=== PATIENT | female | born 1955 | race Caucasian/White ===

== ENCOUNTER → 2017-08-17 | Outpatient (CLI) | payer MEDICARE ==
[~2017-08-17] MED LIST: ADV250/50 INH; ALE70 PO; BUPR300T55 PO; ESOM40CA42 PO; FEXO180T74 PO; FLUT1DIS28 IH; LEVA15HF IH; MON10 PO; ONDA4TAB PO; PIRB14AE3 IH; PROM25S PR; [UNRECOGNIZED DRUG - CODE] MC
[2017-08-17 11:52] LABS: PLATELET COUNT, AUTOMATED 192 K/uL (150-450)
== END ==
LOC: LAB 11:36
PROVIDERS: ATTEND Nurse Practitioner Family
DX: R63.4 Abnormal weight loss (principal)
CPT/HCPCS: 36415; 82040; 82247; 82310; 82374; 82435; 82565; 82947; 83735; 84075; 84132; 84155; 84295; 84443; 84450; 84460; 84520; 85025; 85651; 86140

== ENCOUNTER 2018-01-25 20:46 | Emergency (ER) | payer MEDICARE ==
[~2018-01-25 20:46] MED LIST changes: +ALBU8.5H IH; +BUPR300T56 PO; +DULO30CA6 PO; +DULO60CA7 PO; +MUPI22OI28 TP
[2018-01-25] MEDS ORDERED: PSEU120T69 PO (20:57)
[2018-01-25] MEDS ORDERED: NS(*) 0.9% 1000 ML BAG 1,000 ML IV ONE ×2 (21:03→22:05)
[2018-01-25] MEDS ORDERED: ONDANSETRON 4 MG/2 ML VIAL IVP ONE (21:05)
[2018-01-25] MEDS ORDERED: KETOROLAC 30 MG/ML VIAL IVP ONE (21:05)
[2018-01-25] MEDS ORDERED: ASPIRIN 81 MG CHEW PO ONE (21:05)
--- NOTE | 2018-01-25 21:11 | ER Report ---
History and Physical Time Seen By MD: 21:06 Hx. of Stated Complaint: PATIENT STATES SHE STARTED FEELING LIGHT HEADED, SHAKY AND TINGLING IN HANDS FOR OVER THE LAST HOUR. PATIENT STATES SHE HAS BEEN HAVING PAIN IN CHEST AND SOB THAT HAS BEEN HAPPENING EVERY NIGHT FOR THE LAST FOUR NIGHTS. HPI/ROS CHIEF COMPLAINT: Dizziness, lightheadedness, upper extremity shaking and tingling sensation, chest discomfort, shortness of breath HISTORY OF PRESENT ILLNESS: Patient is a 62-year-old female here with complaints of lightheadedness, weakness, malaise, shakiness and tingling in the upper extremities which started shortly prior to arrival. Patient also reports coinciding chest discomfort which is the mid sternal distribution without radiation and with shortness breath which has been present for the past several evenings. Patient reports similar episodes in the past which were not as bad. She does admit to strenuous exercise this afternoon. Patient's family member noted that she had some gait instability which was transient. Patient denies current headache, blurry vision, fevers, chills, nausea, vomiting, hematuria, dysuria. REVIEW OF SYSTEMS: Constitutional: No fever, no chills. Eyes: No discharge. ENT: No sore throat. Cardiovascular: No chest pain, no palpitations, + mid sternal chest discomfort Respiratory: No cough, + shortness of breath. Gastrointestinal: No abdominal pain, no vomiting. Genitourinary: No hematuria. Musculoskeletal: No back pain. Skin: No rashes. Neurological: No headache, + lightheadedness and tingling sensation of b/l UE Allergies: Coded Allergies: cephalexin (Verified Allergy, Intermediate, RED IN FACE/RASH, 01/25/18) Sulfa (Sulfonamide Antibiotics) (Verified Allergy, Mild, 01/25/18) azelastine (Verified Allergy, Mild, 01/25/18) morphine (Verified Allergy, Mild, 01/25/18) Home Meds Active Scripts Montelukast Sodium (SINGULAIR) 10 Mg Tablet, 1 TAB PO QDAY for 30 Days, #30 TAB Prov:BESS PEDERSON DO 01/25/18 Bupropion Hcl (BUPROPION XL) 300 Mg Tab.er.24h, 300 MG PO QAM for 90 Days, #90 TAB 3 Refills Prov:WELLINGTON,REFUGIO TEJADA 12/15/17 Fluticasone/Salmeterol (ADVAIR 250-50 DISKUS) 1 Each Disk.w.dev, 1 PUFF IH BID, #3 DISK 4 Refills Prov:DEANN MCGHEE APRN 08/17/17 Reported Medications Pseudoephedrine Hcl (SUDAFED 12 HOUR) 120 Mg Tablet.er, 120 MG PO QDAY 01/25/18 Montelukast Sodium (Singulair) 10 Mg Tab, 10 MG PO QDAY, 0 Refills 04/16/11 Pancreatin (Pancreatin) 500 Gm Powder, 500 GM MC, 0 Refills 04/16/11 Esomeprazole Mag Trihydrate (Nexium) 40 Mg Capsule.dr, 40 MG PO QDAY, 0 Refills 04/16/11 Pirbuterol (Maxair Autohaler) 14 Gm Aer.br.act, 14 GM IH, 0 Refills 04/16/11 Fexofenadine Hcl (Yolanda) 180 Mg Tablet, 180 MG PO QDAY, 0 Refills 04/16/11 Discontinued Scripts Mupirocin (MUPIROCIN) 22 Gm Oint...g., 22 GM TP BID, #1 TUBE 0 Refills Apply to wound on ear twice daily as instructed. apply sparingly. Prov:REFUGIO WELLINGTON PHARMD 12/15/17 Duloxetine HCl (Duloxetine HCl) 30 Mg Capsule.dr, 1 CAP PO QDAY for 30 Days, # 30 CAP 2 Refills Prov:REFUGIO WELLINGTON PHARMD 11/03/17 Duloxetine HCl (Duloxetine HCl) 60 Mg Capsule., 1 CAP PO QDAY for 30 Days, # 30 CAP 5 Refills taper off of bupropion as instructed. Prov:REFUGIO WELLINGTON PHARMD 09/26/17 Albuterol Sulfate 90 Mcg/Act (PROAIR HFA 90 MCG/ACT) 8.5 Gm Hfa.aer.ad, 2 PUFF IH QID, #1 INHALER 1 Refill Prov:DEANN MCGHEE APRN 08/31/17 Hx Smoking: No Smoking Status: Never Smoker Hx Substance Use Disorder: No Hx Alcohol Use: No Constitutional Vital Sign - Last 24 Hours 01/25/18 01/25/18 01/25/18 01/25/18 20:49 21:00 21:01 21:16 Temp 97.8 Pulse 121 94 ??? Resp 16 9 13 B/P (MAP) 131/84 110/69 (83) Pulse Ox 93 95 93 O2 Delivery Room Air 01/25/18 01/25/18 22:00 22:01 Pulse 81 Resp 9 B/P (MAP) 110/62 (78) Pulse Ox 97 Intake and Output 01/25/18 01/25/18 01/26/18 14:59 22:59 06:59 Intake Total 1000 ml Balance 1000 ml Physical Exam General Appearance: The patient is alert, has no immediate need for airway protection and no signs of toxicity. No acute distress Eyes: Pupils equal and round no pallor or injection. ENT, Mouth: Mucous membranes are moist. Respiratory: There are no retractions, lungs are clear to auscultation. Cardiovascular: Regular rate and rhythm. Gastrointestinal: Abdomen is soft and non tender, no masses, bowel sounds normal. Neurological: No focal neurological deficits, + subtle horizontal nystagmus which is fatigable Skin: Warm and dry, no rashes. Musculoskeletal: Neck is supple non tender. Extremities are nontender, nonswollen and have full range of motion. DIFFERENTIAL DIAGNOSIS: After history and physical exam differential diagnosis was considered for dizziness including but not limited to peripheral and central causes of vertigo, orthostatic causes including dehydration, and blood loss. Medical Decision Making Data Points Result Diagram: 01/25/18211901/25/182119 Laboratory Hematology Test 01/25/18 21:20 Red Blood Count 4.57 M/uL (4.17-5.56) Mean Corpuscular Volume 90.8 fL (80.0-96.0) Mean Corpuscular Hemoglobin 31.4 pg (26.0-33.0) Mean Corpuscular Hemoglobin Concent 34.6 g/dL (32.0-36.0) Red Cell Distribution Width 13.0 % (11.5-14.5) Mean Platelet Volume 9.5 fL (7.2-11.1) Neutrophils (%) (Auto) 64.5 % (39.4-72.5) Lymphocytes (%) (Auto) 20.0 % (17.6-49.6) Monocytes (%) (Auto) 11.8 % (4.1-12.4) Eosinophils (%) (Auto) 2.9 % (0.4-6.7) Basophils (%) (Auto) 0.8 % (0.3-1.4) Nucleated RBC Relative Count (auto) 0.1 /100WBC Neutrophils # (Auto) 3.9 K/uL (2.0-7.4) Lymphocytes # (Auto) 1.2 K/uL (1.3-3.6) Monocytes # (Auto) 0.7 K/uL (0.3-1.0) Eosinophils # (Auto) 0.2 K/uL (0.0-0.5) Basophils # (Auto) 0.0 K/uL (0.0-0.1) Nucleated RBC Absolute Count (auto) 0.00 K/uL D-Dimer Quantitative (PE/DVT) 0.33 ug/ml (0-0.50) Sodium Level 138 mmol/L (137-145) Potassium Level 3.2 mmol/L (3.5-5.0) Chloride Level 100 mmol/L (98-107) Carbon Dioxide Level 25 mmol/L (22-31) Blood Urea Nitrogen 30 mg/dl (7-18) Creatinine 1.00 mg/dl (0.52-1.04) Glomerular Filtration Rate Calc 55.8 Random Glucose 154 mg/dl (75-110) Calcium Level 9.5 mg/dl (8.4-10.2) Total Bilirubin 0.4 mg/dl (0.2-1.3) Aspartate Amino Transf (AST/SGOT) 38 U/L (0-35) Alanine Aminotransferase (ALT/SGPT) 39 U/L (0-56) Alkaline Phosphatase 82 U/L (0-126) Troponin I < 0.012 ng/ml B-Type Natriuretic Peptide 26 pg/ml (0-100) Total Protein 7.4 g/dl (6.3-8.2) Albumin 4.3 g/dl (3.5-5.0) Chemistry Test 01/25/18 21:20 White Blood Count 6.1 k/uL (4.5-11.0) Red Blood Count 4.57 M/uL (4.17-5.56) Hemoglobin 14.4 g/dL (12.0-16.0) Hematocrit 41.5 % (34.0-47.0) Mean Corpuscular Volume 90.8 fL (80.0-96.0) Mean Corpuscular Hemoglobin 31.4 pg (26.0-33.0) Mean Corpuscular Hemoglobin Concent 34.6 g/dL (32.0-36.0) Red Cell Distribution Width 13.0 % (11.5-14.5) Platelet Count 182 K/uL (150-450) Mean Platelet Volume 9.5 fL (7.2-11.1) Neutrophils (%) (Auto) 64.5 % (39.4-72.5) Lymphocytes (%) (Auto) 20.0 % (17.6-49.6) Monocytes (%) (Auto) 11.8 % (4.1-12.4) Eosinophils (%) (Auto) 2.9 % (0.4-6.7) Basophils (%) (Auto) 0.8 % (0.3-1.4) Nucleated RBC Relative Count (auto) 0.1 /100WBC Neutrophils # (Auto) 3.9 K/uL (2.0-7.4) Lymphocytes # (Auto) 1.2 K/uL (1.3-3.6) Monocytes # (Auto) 0.7 K/uL (0.3-1.0) Eosinophils # (Auto) 0.2 K/uL (0.0-0.5) Basophils # (Auto) 0.0 K/uL (0.0-0.1) Nucleated RBC Absolute Count (auto) 0.00 K/uL D-Dimer Quantitative (PE/DVT) 0.33 ug/ml (0-0.50) Glomerular Filtration Rate Calc 55.8 Calcium Level 9.5 mg/dl (8.4-10.2) Total Bilirubin 0.4 mg/dl (0.2-1.3) Aspartate Amino Transf (AST/SGOT) 38 U/L (0-35) Alanine Aminotransferase (ALT/SGPT) 39 U/L (0-56) Alkaline Phosphatase 82 U/L (0-126) Troponin I < 0.012 ng/ml B-Type Natriuretic Peptide 26 pg/ml (0-100) Total Protein 7.4 g/dl (6.3-8.2) Albumin 4.3 g/dl (3.5-5.0) Coagulation Test 01/25/18 21:20 D-Dimer Quantitative (PE/DVT) 0.33 ug/ml EKG/Imaging EKG Interpretation 12 lead EKG: Normal sinus rhythm with sinus arrhythmia, rate 92, QTc 457, no ischemic changes Rhythm: normal sinus rhythm with sinus arrhythmia Gratz: normal QRS: normal ST segments: normal Imaging CHEST PA AND LAT HISTORY: Chest Pain COMPARISON: Dizziness. Gait instability. FINDINGS: Cardiomediastinal contours: Normal Lungs and pleura: Symmetric streaky opacities within the lung apices. No edema or consolidation. No pneumothorax or pleural effusion. Bones/soft tissues: Normal Other findings: None significant IMPRESSION: 1. Probable biapical pleural-parenchymal scarring. Otherwise no acute consolidation or edema. HEAD W/O CONTRAST HISTORY: dizziness, gait instability COMPARISON STUDIES: None TECHNIQUE: Contiguous axial images were obtained from the skull base to the vertex. One of the following dose optimization techniques was utilized in the performance of this exam: automated exposure control; adjustment of the mA and/ or kv according to patient size; or use of iterative reconstruction technique. Specific details can be referenced in the facility's radiology CT exam operational policy. FINDINGS: Hemorrhage: Negative Ventricles / sulci / fissures: Negative Masses / midline shift: Negative White matter: Negative Modi-white differentiation: Negative Vessels: Negative Extra-axial spaces: Negative Bones/skull base: Negative Visualized mastoid air cells / paranasal sinuses: Negative Scalp and soft tissues: Negative. Other findings: None significant IMPRESSION: 1. No acute intracranial abnormality. ED Course/Re-evaluation ED Course Patient is a 62-year-old female here with complaints of lightheadedness, weakness, tingling sensation in the upper extremities, chest discomfort. Discomfort had been going on for the last [address] imaging of the head showed no acute intracranial pathology. Chest x-ray showed no acute findings. EKG showed no ischemic changes. Patient was given 2 L of fluid with significant improvement of symptoms. Labs are unremarkable. Troponin and d-dimer were negative making myocardial infarction pulmonary embolism less likely. Discussed the findings with the patient she voiced understanding. She was concerned that she may be having a malabsorption issue for which I recommended following up with gastroenterology. I also recommended the patient follows up with cardiology to evaluate for inducible angina or exertional chest pain. I gave the patient a prescription for Singulair until she is able follow up with her PCP. Patient was well-appearing at time of discharge and in no acute distress. Decision to Disposition Date: Jan 25, 2018 Decision to Disposition Time: 22:40 Depart Departure Latest Vital Signs Vital Signs Date Time Temp Pulse Resp B/P (MAP) Pulse Ox O2 Delivery O2 Flow Rate FiO2 01/25/18 22:01 81 9 97 01/25/18 22:00 110/62 (78) 01/25/18 20:49 97.8 Room Air Impression: Primary Impression: Weakness Additional Impressions: Dehydration Lightheadedness Condition: Improved Disposition: HOME OR SELF-CARE New Scripts Montelukast Sodium (SINGULAIR) 10 Mg Tablet 1 TAB PO QDAY for 30 Days, #30 TAB Prov: BESS PEDERSON DO 01/25/18 Patient Instructions: Dehydration (ED), Montelukast (By mouth) Additional Instructions: Please drink plenty of water. You may take Singulair 1 tablet daily until you are able to follow up with your family doctor. Please return promptly if you develop worsening symptoms, chest pain, fevers, shortness of breath, abdominal pain, nausea, vomiting. Please follow up with your gastroenterology doctor as well as your cardiology doctor for further evaluation of chest discomfort and possible malabsorption. Up To Date Article: Symptoms related to volume depletion Symptoms induced by hypovolemia are primarily related to decreased tissue perfusion. The earliest complaints include lassitude, easy fatigability, thirst, muscle cramps, and postural dizziness. More severe fluid loss can lead to abdominal pain, chest pain, or lethargy and confusion due to ischemia of the mesenteric, coronary, or cerebral vascular beds, respectively. These symptoms are usually reversible, although tissue necrosis may develop if the low-flow state is allowed to persist. Patients may also report decreased urine volume or frequency. Low urine volume ( oliguria) is common in hypovolemic patients due to the combination of sodium and water avidity. If, however, concentrating ability is impaired, or if there is increased urea excretion due to catabolism, oliguria may not be present. Symptomatic hypovolemia most often occurs in patients with isosmotic sodium and water depletion in whom most of the fluid deficit comes from the extracellular fluid. This contrasts with pure water loss due to insensible losses or diabetes insipidus, in which the elevation in the plasma osmolality (and sodium concentration) causes water to move down an osmotic gradient from the cells into the extracellular fluid. The net result of pure water loss is that approximately two-thirds of the water lost comes from the intracellular fluid, a condition which is called "dehydration" rather than "hypovolemia." Patients with pure water losses exhibit the symptoms of hypernatremia (produced by the water deficit) before those of marked extracellular fluid depletion. (See "General principles of disorders of water balance (hyponatremia and hypernatremia) and sodium balance (hypovolemia and edema)", section on ' Definitions' and "Manifestations of hyponatremia and hypernatremia in adults".) Symptoms related to the cause of fluid loss Patients with hypovolemia will often have symptoms related to the cause of the fluid losses. These symptoms may include vomiting, diarrhea, polyuria, a severe skin burn, or, in the case of sequestration into a third-space, pain associated with the underlying etiology. (See 'Etiology' above.) Symptoms related to electrolyte abnormalities A variety of electrolyte and acid-base disorders may also occur in hypovolemic patients, depending upon the composition of the fluid that is lost. The more serious symptoms and associated abnormalities include the following: ?Muscle weakness due to hypokalemia or hyperkalemia (see "Approach to the patient with muscle weakness") ?Polyuria and polydipsia due to severe hypokalemia (see "Clinical manifestations and treatment of hypokalemia in adults", section on 'Renal abnormalities') ?Tachypnea due to acidosis (see "Approach to the adult with metabolic acidosis") ?Neuromuscular irritability and confusion due to metabolic alkalosis (see "Clinical manifestations and evaluation of metabolic alkalosis") ?Lethargy, confusion, seizures, and coma due to hyponatremia or hypernatremia ( see "Manifestations of hyponatremia and hypernatremia in adults") An additional symptom that occurs only in primary adrenal insufficiency is extreme salt craving. Patients with this disease frequently give a history of heavily salting all foods (including those not usually salted) and even of eating salt that they have sprinkled on their hands. The mechanism responsible for this appropriate increase in salt intake is not known. (See "Clinical manifestations of adrenal insufficiency in adults".) Physical examination Although relatively insensitive and nonspecific [4], certain findings on physical examination may suggest volume depletion. A decrease in the interstitial volume can be detected by the examination of the skin and mucous membranes, while a decrease in the plasma volume can lead to reductions in the systemic blood pressure and the venous pressure in the jugular veins. Skin and mucous membranes If the skin on the thigh, calf, or forearm is pinched in normal subjects, it will immediately return to its normally flat state when the pinch is released. This elastic property, called turgor, is partially dependent upon the interstitial volume of the skin and subcutaneous tissue. Interstitial fluid loss leads to diminished skin turgor, and the skin flattens more slowly after the pinch is released. In younger patients, the presence of decreased skin turgor is a reliable indicator of volume depletion. By comparison, elasticity diminishes with age, so that reduced skin turgor does not necessarily reflect hypovolemia in older patients (more than 55 to 60 years old). In these patients, skin elasticity is usually best preserved on the inner aspect of the thighs and the skin overlying the sternum. Decreased turgor at these sites is suggestive of volume depletion. (See below.) Although reduced skin turgor is an important clinical finding, normal turgor does not exclude the presence of hypovolemia. This is particularly true with mild volume deficits, in young patients whose skin is very elastic, and in obese patients, since fat deposits under the skin prevent the changes in subcutaneous turgor from being appreciated. The skin is also usually dry in hypovolemic patients, and a dry axilla is particularly suggestive of the diagnosis [4]. The tongue and oral mucosa may also be dry since salivary secretions are commonly decreased in this setting. Examination of the skin may be helpful in the diagnosis of primary adrenal insufficiency. The impaired release of cortisol leads to hypersecretion of ACTH , which can result in increased pigmentation of the skin, especially in the palmar creases and buccal mucosa. (See "Clinical manifestations of adrenal insufficiency in adults".) Arterial blood pressure The arterial blood pressure changes from near normal with mild hypovolemia to low in the upright position and then, with progressive volume depletion, to persistently low regardless of posture. Postural hypotension leading to dizziness may be the patient's major complaint and is strongly suggestive of hypovolemia in the absence of an autonomic neuropathy or the use of sympatholytic drugs for hypertension. An important change that can occur with marked fluid loss is that the secondary neurohumoral vasoconstriction leads to decreased intensity of both the Korotkoff sounds (when the blood pressure is being measured with a sphygmomanometer) and the radial pulse [5,6]. As a result, a very low blood pressure suggested by auscultation or palpation may actually be associated with a near-normal pressure when measured directly by an intraarterial catheter. It should be noted that the definition of normal blood pressure in this setting is dependent upon the patient's usual value. Although <120/80 mmHg is considered "normal," it is actually low in a hypertensive patient whose blood pressure is commonly 180/100 mmHg. Jugular venous pressure The reduction in the vascular volume observed with hypovolemia occurs primarily in the venous circulation (which normally contains 70 percent of the blood volume), thereby leading to a decrease in venous pressure. In most patients, the venous pressure can be estimated with sufficient accuracy by physical examination. The height of the jugular venous pulse above the right atrium (5 cm above the sternal angle of Loi) approximates the atrial pressure. However, characterization of the venous pressure as either low (less than or equal to 5 cm H20) or high (greater than or equal to10 cm H20) is probably as precise an estimate as can be achieved. Theoretically, the internal jugular vein would provide a more accurate reflection of right atrial pressure than the external jugular vein because of its larger diameter, less tortuous course, and absence of valves. However, many clinicians find that pulsations of the external jugular vein are more easily seen, and inspection of this venous pulse alone has been shown to correlate with direct measurements made by a central venous catheter positioned in the right atrium [7]. Laboratory abnormalities Hypovolemic patients can have a variety of abnormal results of routinely performed laboratory tests. In addition to suggesting the presence of volume depletion, these changes may provide important clues to the etiology. Low urine volume As noted above, the urine volume is typically, but not always , low (oliguria) in hypovolemic patients due to the combination of sodium and water avidity. If, however, concentrating ability is impaired, or if urea excretion is high, oliguria may not be present. Elevation of the BUN and serum creatinine concentration In most circumstances , the BUN and serum creatinine concentration vary inversely with the glomerular filtration rate (GFR), increasing as the GFR falls. Serial measurements of these parameters can be used to assess the course of renal disease. However, an elevation in the BUN can also be produced by an increase in the rate of urea production or tubular reabsorption. As a result, the serum creatinine concentration is a more reliable estimate of the GFR since it is produced at a relatively constant rate by skeletal muscle and is not reabsorbed by the renal tubules. (See "Assessment of kidney function".) In normal subjects and those with uncomplicated renal disease, the BUN/serum creatinine ratio is approximately 10:1. However, this value may be substantially elevated in hypovolemic states because of the associated increase in urea reabsorption [8]. In general, approximately 40 to 50 percent of filtered urea is reabsorbed, much of this occurring in the proximal tubule, where it is passively linked to the reabsorption of sodium and water. Thus, the increase in proximal sodium reabsorption in volume depletion produces a parallel increase in urea reabsorption. The net effect is a fall in urea excretion and elevations in the BUN and the BUN/serum creatinine ratio, frequently to greater than 20:1. This selective rise in the BUN is called prerenal azotemia. The serum creatinine concentration will increase in this setting only if the degree of hypovolemia is severe enough to lower the GFR. ( See "Etiology and diagnosis of prerenal disease and acute tubular necrosis in acute kidney injury in adults".) Although an elevated BUN/serum creatinine may indicate hypovolemia, it is subject to misinterpretation for two major reasons: 1) the BUN is affected by the rate of urea production; a high ratio may be due solely to increased urea production (as with steroid therapy) rather than hypovolemia, whereas a normal ratio may occur in patients with hypovolemia if urea production is reduced (eg, due to decreased protein intake); 2) the serum creatinine is affected by muscle mass as well as GFR; a high ratio may be due to a low muscle mass (which lowers the serum creatinine concentration), increasing the BUN/serum creatinine ratio in the absence of hypovolemia. A special case is the increased BUN/serum creatinine ratio in patients with upper gastrointestinal bleeding. In such patients, the ratio increases markedly for two reasons: the extracellular fluid volume is decreased due to the blood loss, which increases proximal tubule urea reabsorption; and the rate of urea production is increased due to the catabolism and absorption of blood proteins from the gastrointestinal tract. Hypernatremia and hyponatremia A variety of factors can influence the serum sodium concentration in hypovolemic states, and it is the interplay between them that determines the level observed in a given patient. Primary water loss, as in insensible losses or diabetes insipidus, results in hypernatremia. On the other hand, salt and water loss may be associated with hyponatremia. Volume depletion stimulates the release of antidiuretic hormone (ADH), which will tend to cause retention of ingested water. (See "General principles of disorders of water balance (hyponatremia and hypernatremia) and sodium balance (hypovolemia and edema)" and "Etiology and evaluation of hypernatremia in adults" and " Causes of hyponatremia in adults".) Hypokalemia and hyperkalemia Either hypokalemia or hyperkalemia can occur in hypovolemic patients. The former is much more common because of potassium loss from the gastrointestinal tract or in the urine. However, there may be an inability to excrete the dietary potassium load in the urine because of renal failure, hypoaldosteronism, or volume depletion itself since the delivery of sodium and water to the potassium secretory site in the cortical collecting tubule will be reduced. (See "Causes and evaluation of hyperkalemia in adults".) Metabolic alkalosis and acidosis The effect of fluid loss on acid-base balance also is variable. Although many patients maintain a normal extracellular pH, either metabolic alkalosis or metabolic acidosis can occur. Patients with vomiting or nasogastric suction or those given diuretics tend to develop metabolic alkalosis because of hydrogen ion loss and volume contraction. On the other hand, bicarbonate loss (due to diarrhea or intestinal fistulas) can lead to metabolic acidosis. In addition, lactic acidosis can occur in shock and ketoacidosis in uncontrolled diabetes mellitus. (See "Causes of metabolic alkalosis" and "Approach to the adult with metabolic acidosis".) Hematocrit and serum albumin concentration Since red blood cells and albumin are essentially limited to the vascular space, a reduction in the plasma volume due to volume depletion tends to elevate both the hematocrit (ie, relative polycythemia) and serum albumin concentration. However, these changes are frequently absent because of underlying hypoalbuminemia and/or anemia, due, for example, to bleeding. Manifestations of shock The symptoms and physical findings that have been described apply to patients with mild to moderate volume depletion who are still able to maintain an adequate level of tissue perfusion. However, as the degree of hypovolemia becomes more severe, due, for example, to the loss of 30 percent of the blood volume from a ruptured aortic aneurysm, there is a marked reduction in tissue perfusion, resulting in a clinical syndrome referred to as hypovolemic shock [5,9]. This syndrome is associated with a marked increase in sympathetic activity and is characterized by tachycardia, cold, clammy extremities, cyanosis, a low urine output (usually less than 15 mL/h), and agitation and confusion due to reduced cerebral blood flow. (See "Definition, classification, etiology, and pathophysiology of shock in adults".) Manifestations in older adults Unlike in younger individuals, excessive fluid loss in older individuals often presents with nonspecific signs and symptoms. The most specific for hypovolemia is acute weight loss; however, obtaining an accurate weight over time may be difficult in older adults. Weight loss is particularly important to identify because older adults, compared with the young , have a greater proportion of fat (relative to lean) muscle mass. Since there is less water in fat than in muscle, older individuals have a lower total body water (relative to weight) and therefore, for a given degree of fluid loss, will have a greater reduction in extracellular fluid volume. Many clinical signs and symptoms that would suggest volume depletion in a younger individual may be unreliable in older adults. Postural hypotension, for example, is not uncommon in euvolemic older adult patients as a result of sympathetic dysfunction and poor physical conditioning. In addition, a dry tongue and mouth, muscle weakness, confusion, speech difficulty, and sunken eyes can occur in older adults for many reasons other than volume depletion [6]. Based upon the type of fluid lost and clinical setting, the older adult patient may have a normal, low, or high serum sodium concentration. Older individuals are particularly prone to hypernatremia because of impaired thirst mechanisms and an inability to increase water intake due to compromised mobility and/or swallowing ability. Problem Qualifiers BESS PEDERSON DO Jan 25, 2018 21:11
[2018-01-25 21:31] LABS: PLATELET COUNT, AUTOMATED 182 K/uL (150-450)
--- NOTE | 2018-01-25 22:12 | RADIOLOGY IMAGING REPORT ---
FACILITY: [facility] - [place] PATIENT NAME: Leny Etienne : 1955 MR: [id number] V: [id number] EXAM DATE: ORDERING PHYSICIAN: BESS PEDERSON TECHNOLOGIST: Location: [facility] Patient: Leny Etienne : 1955 Visit/Account:[id number] Date of Sevice: 01/25/2018 HEAD W/O CONTRAST HISTORY: dizziness, gait instability COMPARISON STUDIES: None TECHNIQUE: Contiguous axial images were obtained from the skull base to the vertex. One of the [employer] dose optimization techniques was utilized in the performance of this exam: automated exposure co ntrol; adjustment of the mA and/or kv according to patient size; or use of iterative reconstruction t echnique. Specific details can be referenced in the facility's radiology CT exam operational policy. FINDINGS: Hemorrhage: Negative Ventricles / sulci / fissures: Negative Masses / midline shift: Negative White matter: Negative Modi-white differentiation: Negative Vessels: Negative Extra-axial spaces: Negative Bones/skull base: Negative Visualized mastoid air cells / paranasal sinuses: Negative Scalp and soft tissues: Negative. Other findings: None significant IMPRESSION: 1. No acute intracranial abnormality. Report Dictated By: Onofre Diaz MD at 01/25/2018 10:05 PM Report E-Signed By: Onofre Diaz MD at 01/25/2018 10:08 PM WSN:[id number]
--- NOTE | 2018-01-25 22:15 | RADIOLOGY IMAGING REPORT ---
FACILITY: [facility] - [place] PATIENT NAME: Leny Etienne : 1955 MR: [id number] V: [id number] EXAM DATE: ORDERING PHYSICIAN: BESS PEDERSON TECHNOLOGIST: Location: [facility] Patient: Leny Etienne : 1955 Visit/Account:[id number] Date of Sevice: 01/25/2018 CHEST PA AND LAT HISTORY: Chest Pain COMPARISON: Dizziness. Gait instability. FINDINGS: Cardiomediastinal contours: Normal Lungs and pleura: Symmetric streaky opacities within the lung apices. No edema or consolidation. No p neumothorax or pleural effusion. Bones/soft tissues: Normal Other findings: None significant IMPRESSION: 1. Probable biapical pleural-parenchymal scarring. Otherwise no acute consolidation or edema. Report Dictated By: Onofre Diaz MD at 01/25/2018 10:10 PM Report E-Signed By: Onofre Diaz MD at 01/25/2018 10:11 PM WSN:[id number]
[2018-01-25 22:30] VITALS: BP 119/64
[2018-01-25] MEDS ORDERED: MONT10TA PO (22:42)
--- NOTE | 2018-01-25 23:31 | EKG ---
FACILITY: [facility] PATIENT NAME: TANYA WETZEL : [id number] MR: [id number] V: [id number] EXAM DATE: ORDERING PHYSICIAN: BESS PEDERSON TECHNOLOGIST: NIKKI Test Reason : CARDAIC Blood Pressure : / mmHG Vent. Rate : 092 BPM Atrial Rate : 092 BPM P-R Int : 142 ms QRS Dur : 070 ms QT Int : 370 ms P-R-T Axes : 077 076 065 degrees QTc Int : 457 ms Sinus rhythm with marked sinus arrhythmia Possible Left atrial enlargement R wave progression consistent with old ant/sep OH vs lead placement No previous ECGs available Confirmed by MARK OSUNA ([id number]) on 01/26/2018 6:42:47 AM Referred By: Confirmed By:MARK OSUNA
== END 2018-01-25 22:55 | disposition home or self-care (01) ==
LOC: ER 21:37
DX: E86.0 Dehydration (principal); R53.1 Weakness; R42 Dizziness and giddiness
CPT/HCPCS: 70450; 71046; 83880; 84484; 85025; 85379; 93005; 96360; 99285; J7030; 82040; 82247; 82310; 82374; 82435; 82565; 82947; 84075; 84132; 84155; 84295; 84450; 84460; 84520

== ENCOUNTER → 2018-02-01 | Outpatient (CLI) | payer MEDICARE ==
[~2018-02-01] MED LIST changes: +MONT10TA PO; +PSEU120T69 PO
[2018-02-01 16:22] LABS: PLATELET COUNT, AUTOMATED 213 K/uL (150-450)
== END ==
LOC: LAB 16:01
PROVIDERS: ATTEND Nurse Practitioner Family
DX: E86.0 Dehydration (principal); R42 Dizziness and giddiness; R53.1 Weakness; K86.9 Disease of pancreas, unspecified; R20.2 Paresthesia of skin; R74.8 Abnormal levels of other serum enzymes; R73.09 Other abnormal glucose
CPT/HCPCS: 36415; 82040; 82247; 82310; 82374; 82435; 82565; 82607; 82728; 82746; 82947; 83036; 83540; 83550; 83735; 84075; 84132; 84155; 84295; 84443; 84450; 84460; 84520; 85025

== ENCOUNTER → 2018-02-02 | Outpatient (CLI) | payer MEDICARE ==
--- NOTE | 2018-02-05 11:37 | RT HOLTER TEST ---
FACILITY: [facility] - [place] PATIENT NAME: TANYA WETZEL : [id number] MR: [id number] V: [id number] EXAM DATE: ORDERING PHYSICIAN: DEANN MCGHEE TECHNOLOGIST: Tawana Clarke-up date: 2018-02-02 13:30:00 Duration: 47:59:00 Test Indications: Tachycardia, CP Medications: none listed [id number] QRS complexes 1756 Ventricular ectopics which represent <1 % of total QRS comp. 16 Supraventricular ectopics which represent <1 % of total QRS comp. * Paced QRS complexes which represent % of total QRS comp. VENTRICULAR ECTOPY 1756 Isolated 0 Bigeminal Cycles 0 Couplets 0 Runs 0 Beats in Runs * Beats LONGEST at * BPM at :: -- * Beats FASTEST at * BPM at :: -- SUPRAVENTRICULAR ECTOPY 14 Isolated 1 Couplets 0 Runs 0 Beats in Runs * Beats LONGEST at * BPM at :: -- * Beats FASTEST at * BPM at :: -- HEART RATES 58 MIN at 05:56:54 2018-02-03 82 AVG 152 MAX at 17:08:08 2018-02-02 LONGEST RR 1.232 secs at 22:29:42 2018-02-02 S-T LEVELS Channel 1 -12.800 mm MIN at 13:30:00 2018-02-02 -12.800 mm MAX at 13:30:00 2018-02-02 Channel 2 -12.800 mm MIN at 13:30:00 2018-02-02 -12.800 mm MAX at 13:30:00 2018-02-02 Channel 3 -12.800 mm MIN at 13:30:00 2018-02-02 -12.800 mm MAX at 13:30:00 2018-02-02 Occasional ventricular ectopy. No couplets, triplets,or runs. Rare supraventricular ectopy with one couplet and one possible short burst of supraventricular tachyc ardia (~5 or 6 beats) noted as sinus tachycardia in the event strips. No pauses recorded. Confirmed by MARITZA REGAN ([id number]) on 02/05/2018 11:36:55 AM Referred By: Deann Mcghee Overread By: MARITZA REGAN
== END ==
LOC: RESP 13:07
PROVIDERS: ATTEND Nurse Practitioner Family
DX: I49.3 Ventricular premature depolarization (principal); R00.0 Tachycardia, unspecified
CPT/HCPCS: 93225; 93226

== ENCOUNTER → 2018-02-08 | Outpatient (CLI) | payer MEDICARE ==
--- NOTE | 2018-02-08 17:24 | RADIOLOGY IMAGING REPORT ---
FACILITY: [facility] PATIENT NAME: Leny Etienne : 1955 MR: [id number] V: [id number] EXAM DATE: ORDERING PHYSICIAN: DEANN MCGHEE TECHNOLOGIST: Location[place] [facility] [place] Patient: Leny Etienne : 1955 Visit/Account:[id number] Date of Sevice: 02/08/2018 CAROTID HISTORY: dizziness, left arm parasthesia COMPARISON: None. FINDINGS: Grayscale, duplex and color Doppler interrogation of the extracranial carotid and vertebral arteries was performed bilateral. On the right, peak systolic velocities within the common and internal carotid arteries are 122 and 89 .5 cm/sec respectively. Minimal plaque identified at the right carotid bulb proximal right internal carotid artery. Antegrade flow within the common, internal and external carotid arteries as well as vertebral artery. ICA/CCA ratio 0.8. On the left, peak systolic velocities within the common and internal carotid arteries are 131 and 88 cm/sec respectively. Minimal plaque at the left carotid bulb and proximal left internal carotid shelli ry. Antegrade flow within the common, internal and external carotid arteries as well as vertebral ar jose. ICA/CCA ratio 0.8. IMPRESSION: Minimal plaque at the carotid bulbs and proximal internal carotid arteries although no hemodynamicall y significant lesions by velocity criteria Velocity criteria are extrapolated from diameter data as defined by the Society of Radiologists [facility] Consensus Conference Radiology 2003; 229;340-346 Report Dictated By: Caitlyn Snyder MD at 02/08/2018 5:19 PM Report E-Signed By: Caitlyn Snyder MD at 02/08/2018 5:21 PM WSN:[email or web address]
== END ==
LOC: US 01:53
PROVIDERS: ATTEND Nurse Practitioner Family
DX: I65.23 Occlusion and stenosis of bilateral carotid arteries (principal)
CPT/HCPCS: 93880

== ENCOUNTER → 2018-03-31 | Outpatient (CLI) | payer MEDICARE ==
[~2018-03-31] MED LIST changes: +CYCL10TA29 PO; +LIPA1CAP61 PO
== END ==
LOC: LAB 11:59
PROVIDERS: ATTEND Nurse Practitioner Family
DX: E86.0 Dehydration (principal); R53.1 Weakness
CPT/HCPCS: 36415; 82040; 82247; 82310; 82374; 82435; 82565; 82728; 82947; 83540; 83550; 84075; 84132; 84155; 84295; 84450; 84460; 84520

== ENCOUNTER 2018-04-06 21:05 | Emergency (ER) | payer MEDICARE ==
[~2018-04-06 21:05] MED LIST changes: -CYCL10TA29 PO; -LIPA1CAP61 PO
--- NOTE | 2018-04-06 21:18 | ER Report ---
History and Physical Time Seen By MD: 21:18 Hx. of Stated Complaint: patient states that about 2 hours ago she started having pain underneath her left shoulder; states that she was holding her granddaughter yesterday with that arm HPI/ROS CHIEF COMPLAINT: Left scapular border muscular pain HISTORY OF PRESENT ILLNESS: Patient is a 62-year-old female here with complaints of left back pain located at the scapular border which is been present starting today. Patient reports that the pain radiates up the scapular border into her shoulder and laterally along the scapular border. Pain is worse with range of motion of the arm and is tender along the scapular border. Patient reports that she was holding her grandson yesterday and may have strained her muscles. Patient has not been taking home pain medications because she reports that they tend to give her GI upset. Patient is hemodynamically stable at time of evaluation reporting that her pain is worse with deep inspiration in the superficial musculature. REVIEW OF SYSTEMS: Constitutional: No fever, no chills. Eyes: No discharge. ENT: No sore throat. Cardiovascular: No chest pain, no palpitations. Respiratory: No cough, no shortness of breath. Gastrointestinal: No abdominal pain, no vomiting. Genitourinary: No hematuria. Musculoskeletal: + left scapular border back pain. Skin: No rashes. Neurological: No headache. Allergies: Coded Allergies: cephalexin (Verified Allergy, Intermediate, RED IN FACE/RASH, 04/06/18) Sulfa (Sulfonamide Antibiotics) (Verified Allergy, Mild, 04/06/18) azelastine (Verified Allergy, Mild, 04/06/18) morphine (Verified Allergy, Mild, 04/06/18) oats (Verified Allergy, Mild, 04/06/18) Home Meds Active Scripts Montelukast Sodium (SINGULAIR) 10 Mg Tablet, 1 TAB PO QDAY for 30 Days, #90 TAB 3 Refills Prov:DEANN MCGHEE APRN [employer]ENT-C 03/07/18 Bupropion Hcl (BUPROPION XL) 300 Mg Tab.er.24h, 300 MG PO QAM for 90 Days, #90 TAB 3 Refills Prov:REFUGIO WELLINGTON PHARMD 12/15/17 Fluticasone/Salmeterol (ADVAIR 250-50 DISKUS) 1 Each Disk.w.dev, 1 PUFF IH BID, #3 DISK 4 Refills Prov:DEANN MCGHEE APRN [employer]ENT-C 08/17/17 Reported Medications Lipase/Protease/Amylase (CREON 12,000 UNITS CAPSULE) 1 Each Capsule.dr, 1 EACH PO 04/06/18 Pseudoephedrine Hcl (SUDAFED 12 HOUR) 120 Mg Tablet.er, 120 MG PO QDAY 01/25/18 Montelukast Sodium (Singulair) 10 Mg Tab, 10 MG PO QDAY, 0 Refills 04/16/11 Pancreatin (Pancreatin) 500 Gm Powder, 500 GM MC, 0 Refills 04/16/11 Esomeprazole Mag Trihydrate (Nexium) 40 Mg Capsule.dr, 40 MG PO QDAY, 0 Refills 04/16/11 Fexofenadine Hcl (Yoalnda) 180 Mg Tablet, 180 MG PO QDAY, 0 Refills 04/16/11 Discontinued Reported Medications Pirbuterol (Maxair Autohaler) 14 Gm Aer.br.act, 14 GM IH, 0 Refills 04/16/11 Hx Smoking: No Smoking Status: Never Smoker Hx Substance Use Disorder: No Hx Alcohol Use: No Constitutional Vital Sign - Last 24 Hours 04/06/18 21:09 Temp 98.2 Pulse 95 Resp 17 B/P (MAP) 120/62 Pulse Ox 95 O2 Delivery Room Air Physical Exam General Appearance: The patient is alert, has no immediate need for airway protection and no signs of toxicity. Mild distress secondary to pain Eyes: Pupils equal and round no pallor or injection. ENT, Mouth: Mucous membranes are moist. Respiratory: There are no retractions, lungs are clear to auscultation. Cardiovascular: Regular rate and rhythm. Gastrointestinal: Abdomen is soft and non tender, no masses, bowel sounds normal. Neurological: No focal neuro deficits Skin: Warm and dry, no rashes. Musculoskeletal: Neck is supple non tender, + left scapular border muscle pain worse with ROM and deep breathing DIFFERENTIAL DIAGNOSIS: After history and physical exam differential diagnosis was considered for muscle spasm, muscle strain, contusion Medical Decision Making EKG/Imaging Imaging EXAMINATION: Chest 2 Views HISTORY: Left posterior thoracic pain. COMPARISON: 01/25/2018. FINDINGS: Mild biapical scarring. The lungs are otherwise clear. No focal consolidation or pleural effusion. No pneumothorax. Normal heart size and pulmonary vascularity, with normal cardiomediastinal contours. Visualized osseous structures appear intact. IMPRESSION: No evidence of acute cardiopulmonary disease. Stable exam. ED Course/Re-evaluation ED Course Patient is a 62-year-old female here with left scapular border muscular skeletal pain likely due to muscle strain or muscle spasm. Chest x-ray showed no acute pulmonary process or pneumothorax or fracture. Patient reportedly was holding her grandson yesterday which likely resuscitator current symptoms. Patient admitted to not taking home analgesics due to GI upset which she typically gets when she takes them. Patient was given Toradol intramuscularly. Patient was given a prescription for cyclobenzaprine for anti-spasmodic. Patient was advised to follow up with her PCP in one week. Decision to Disposition Date: Apr 06, 2018 Decision to Disposition Time: 22:26 Depart Departure Latest Vital Signs Vital Signs Date Time Temp Pulse Resp B/P (MAP) Pulse Ox O2 Delivery O2 Flow Rate FiO2 04/06/18 21:09 98.2 95 17 120/62 95 Room Air Impression: Primary Impression: Muscle spasm Condition: Improved Disposition: HOME OR SELF-CARE Referrals: DEANN MCGHEE APRN [employer] AGENT-C (PCP) New Scripts Cyclobenzaprine Hcl (CYCLOBENZAPRINE HCL) 10 Mg Tablet 10 MG PO Q8H PRN for MUSCLE SPASMS, #20 TAB 0 Refills Prov: BESS PEDERSON DO 04/06/18 Patient Instructions: Cyclobenzaprine (By mouth), Muscle Spasm (ED) Additional Instructions: You may take 1 tablet of Flexeril every 6-8 hours as needed for muscle spasm and pain. Please follow-up with your family doctor in the next 3 days for reevaluation. Please return if you develop worsening pain, numbness or weakness in your extremities, fevers or chills, chest pain or shortness breath. BESS PEDERSON DO Apr 06, 2018 21:18
[2018-04-06] MEDS ORDERED: LIPA1CAP61 PO (21:20)
[2018-04-06] MEDS ORDERED: KETOROLAC 60 MG/2 ML VIAL IM ONE (21:25)
--- NOTE | 2018-04-06 22:18 | RADIOLOGY IMAGING REPORT ---
FACILITY: [facility] [place] PATIENT NAME: Leny Etienne : 1955 MR: [id number] V: [id number] EXAM DATE: ORDERING PHYSICIAN: BESS PEDERSON TECHNOLOGIST: Location: [facility] - [place] Patient: Leny Etienne : 1955 Visit/Account:[id number] Date of Sevice: 04/06/2018 EXAMINATION: Chest 2 Views HISTORY: Left posterior thoracic pain. COMPARISON: 01/25/2018. FINDINGS: Mild biapical scarring. The lungs are otherwise clear. No focal consolidation or pleural effusion. No pneumothorax. Normal heart size and pulmonary vascularity, with normal cardiomediastinal contours. Visualized osseous structures appear intact. IMPRESSION: No evidence of acute cardiopulmonary disease. Stable exam. Report Dictated By: Ortega Parsons MD at 04/06/2018 10:09 PM Report E-Signed By: Ortega Parsons MD at 04/06/2018 10:14 PM WSN:[id number]
[2018-04-06] MEDS ORDERED: ONDANSETRON 4 MG ODT TABDP SL ONE (22:25)
[2018-04-06] MEDS ORDERED: CYCL10TA29 PO (22:25)
[2018-04-06] MEDS ORDERED: CYCLOBENZAPRINE HCL 10 MG TH PO ONE (22:25)
[2018-04-06 22:30] VITALS: BP 111/62
== END 2018-04-06 22:36 | disposition home or self-care (01) ==
LOC: ER 21:30
DX: M62.838 Other muscle spasm (principal)
CPT/HCPCS: 71046; 96372; 99283; J1885; Q0162; S0119

== ENCOUNTER → 2018-09-27 | Outpatient (CLI) | payer MEDICARE ==
[~2018-09-27] MED LIST changes: +CYCL10TA29 PO; +FLU60SYR36 IM; +LIPA1CAP61 PO
== END ==
LOC: LAB 15:53
PROVIDERS: ATTEND Nurse Practitioner Family
DX: R79.89 Other specified abnormal findings of blood chemistry (principal)
CPT/HCPCS: 36415; 82728; 83540; 83550

== ENCOUNTER → 2018-10-06 | Outpatient (CLI) | payer MEDICARE | LOC: LAB 11:54 | PROVIDERS: ATTEND Nurse Practitioner Family | DX: R79.89 Other specified abnormal findings of blood chemistry (principal) | CPT/HCPCS: 36415; 81256 ==

== ENCOUNTER → 2018-11-23 | Outpatient (CLI) | payer MEDICARE ==
[~2018-11-23] MED LIST changes: +DICL100G39 TOP
--- NOTE | 2018-11-23 15:31 | RADIOLOGY IMAGING REPORT ---
FACILITY: [facility] PATIENT NAME: Leny Etienne : 1955 MR: [id number] V: [id number] EXAM DATE: ORDERING PHYSICIAN: RINKU REHMAN TECHNOLOGIST: Location: [facility] [place] Patient: Leny Etienne : 1955 Visit/Account:[id number] Date of Sevice: 11/23/2018 FOOT 3 VIEWS RIGHT Indication: Right ankle pain and heel pain Comparison: None. Findings: The phalanges, metatarsal, and tarsal bones are intact. Joint spaces are smooth. There is no soft tissue swelling. IMPRESSION: Negative right foot radiograph. Report Dictated By: Delroy Wynne at 11/23/2018 3:26 PM Report E-Signed By: Delroy Wynne at 11/23/2018 3:27 PM WSN:[email or web address]
== END ==
LOC: RAD 14:58
PROVIDERS: ATTEND Nurse Practitioner Primary Care
DX: M25.571 Pain in right ankle and joints of right foot (principal)

== ENCOUNTER → 2019-02-28 | Outpatient (CLI) | payer MEDICARE ==
[~2019-02-28] MED LIST changes: +CALC-852 PO
[2019-02-28 12:41] LABS: PLATELET COUNT, AUTOMATED 193 K/uL (150-450)
== END ==
LOC: LAB 12:11
PROVIDERS: ATTEND Nurse Practitioner Family
DX: R00.2 Palpitations (principal); K86.89 Other specified diseases of pancreas; Z79.899 Other long term (current) drug therapy
CPT/HCPCS: 36415; 82040; 82247; 82310; 82374; 82435; 82565; 82728; 82947; 83540; 83550; 83735; 84075; 84132; 84155; 84295; 84443; 84450; 84460; 84520; 85025

== ENCOUNTER → 2019-03-06 | Outpatient (CLI) | payer MEDICARE ==
--- NOTE | 2019-03-08 18:04 | RT HOLTER TEST ---
FACILITY: [facility] PATIENT NAME: TANYA WETZEL : [id number] MR: [id number] V: [id number] EXAM DATE: ORDERING PHYSICIAN: DEANN MCGHEE TECHNOLOGIST: Mitchel Hook-up date: 2019-03-06 13:22:00 Duration: 47:59:00 Test Indications: PALPITATIONS Medications: Creon Buproprion Motelukast Advair Yolanda Nexium [id number] QRS complexes 19 Ventricular ectopics which represent <1 % of total QRS comp. 21 Supraventricular ectopics which represent <1 % of total QRS comp. * Paced QRS complexes which represent % of total QRS comp. VENTRICULAR ECTOPY 19 Isolated 0 Bigeminal Cycles 0 Couplets 0 Runs 0 Beats in Runs * Beats LONGEST at * BPM at :: -- * Beats FASTEST at * BPM at :: -- SUPRAVENTRICULAR ECTOPY 21 Isolated 0 Couplets 0 Runs 0 Beats in Runs * Beats LONGEST at * BPM at :: -- * Beats FASTEST at * BPM at :: -- HEART RATES 58 MIN at 07:33:21 2019-03-07 86 AVG 141 MAX at 13:13:28 2019-03-07 LONGEST RR 1.080 secs at 07:34:08 2019-03-08 S-T LEVELS Channel 1 -12.800 mm MIN at 13:22:00 2019-03-06 -12.800 mm MAX at 13:22:00 2019-03-06 Channel 2 -12.800 mm MIN at 13:22:00 2019-03-06 -12.800 mm MAX at 13:22:00 2019-03-06 Channel 3 -12.800 mm MIN at 13:22:00 2019-03-06 -12.800 mm MAX at 13:22:00 2019-03-06 Rare ventricular ectopy. No couplets, triplets, or runs. Rare supraventricular ectopy. No couplets, triplets, or runs. No pauses of more than two (2) seconds were recorded. Confirmed by MARITZA REGAN ([id number]) on 03/08/2019 6:00:05 PM Referred By: Overread By: MARITZA REGAN
== END ==
LOC: RESP 00:36
PROVIDERS: ATTEND Nurse Practitioner Family
DX: R00.2 Palpitations (principal)
CPT/HCPCS: 93225